=== PATIENT | male | born 2000 | race Caucasian/White ===

== ENCOUNTER 2021-04-20 21:18 | Emergency (ER) | payer MEDICAID ==
[~2021-04-20] VITALS: Ht 188 cm; Wt 77.3 kg
[2021-04-20 21:48] VITALS: BP 126/80
== END 2021-04-21 00:54 | disposition home or self-care (01) ==
LOC: ER 21:18
DX: S61.111A Laceration without foreign body of right thumb with damage to nail, initial encounter (principal); W26.0XXA Contact with knife, initial encounter; Y93.89 Activity, other specified; Y92.89 Other specified places as the place of occurrence of the external cause; Y99.8 Other external cause status
CPT/HCPCS: 11760; 12001; 99282; 99284

== ENCOUNTER 2021-04-22 07:28 | Emergency (ER) | payer MEDICAID ==
[~2021-04-22] VITALS: Ht 188 cm; Wt 73.2 kg
[2021-04-22 07:38] VITALS: BP 111/72
== END 2021-04-22 08:22 | disposition home or self-care (01) ==
LOC: ER 07:28
DX: S61.011D Laceration without foreign body of right thumb without damage to nail, subsequent encounter (principal); Z48.00 Encounter for change or removal of nonsurgical wound dressing
CPT/HCPCS: 99281

== ENCOUNTER 2021-04-26 13:57 | Emergency (ER) | payer MEDICAID ==
[~2021-04-26] VITALS: Ht 188 cm; Wt 72.2 kg
[2021-04-26 14:43] VITALS: BP 114/64
[2021-04-26] MEDS ORDERED: cephalexin 500mg capsule PO ONE (15:20)
[2021-04-26] MEDS ORDERED: sulfamethoxazole/trimethoprim DS (800/160mg) tablet PO ONE (15:20)
[2021-04-26] MEDS ORDERED: CEPH250T PO (15:29)
[2021-04-26] MEDS ORDERED: SULF1TAB45 PO (15:29)
[2021-04-26] MEDS ORDERED: IBUP-1984 PO (15:29)
== END 2021-04-26 15:38 | disposition home or self-care (01) ==
LOC: ER 14:00
DX: L08.9 Local infection of the skin and subcutaneous tissue, unspecified (principal); Z79.2 Long term (current) use of antibiotics; Z79.899 Other long term (current) drug therapy; Z56.0 Unemployment, unspecified
CPT/HCPCS: 99283